=== PATIENT | male | born 1990 | race Two or more races ===

== ENCOUNTER 2019-05-10 12:49 | Emergency (ER) | payer OTHER ==
[~2019-05-10] VITALS: Ht 177.8 cm; Wt 118.0 kg
[2019-05-10 13:01] VITALS: BP 167/114
--- NOTE | 2019-05-10 13:06 | NUR ---
PT AMBULATORY WITH STEADY GAIT TO ROOM. CHANGING INTO GOWN NOW.
--- NOTE | 2019-05-10 13:10 | NUR ---
PT STATES HE HAS BEEN SPITTING BLOOD ON AND OFF RECENTLY. (COMES AND GOES). DENIES DRUG USE/CIGARRETTE USE. STATES HE SMOKES MARIJUANA. PT SITTING ON GURNEY. NADN. BOLTON AT BEDSIDE ASSESSING PT NOW.
--- NOTE | 2019-05-10 13:24 | NUR ---
PT AWARE OF DC PLAN. DRESSED.
== END 2019-05-10 13:32 | disposition home or self-care (01) ==
LOC: ED 13:00
DX: R09.82 Postnasal drip (principal)
CPT/HCPCS: 99281